=== PATIENT | male | born 1985 | race Two or more races ===

== ENCOUNTER 2019-11-14 11:49 | Emergency (ER) | payer MEDICAID, OTHER ==
[~2019-11-14] VITALS: Ht 188 cm; Wt 88.5 kg
[2019-11-14] MEDS ORDERED: ASPirin 81 mg TAB PO ONE (12:30)
[2019-11-14 13:10] LABS: Alcohol, Urine < 3.0 mg/dL (0-5); Amphetamine Screen, Urine NEGATIVE (NEGATIVE); Barbiturate Scree,Urine NEGATIVE (NEGATIVE); Benzodiazephine Screen, Urine NEGATIVE (NEGATIVE); Cannabinoid Screen, Urine POSITIVE (NEGATIVE); Cocaine Screen, Urine NEGATIVE (NEGATIVE); Opiate Scree,Urine NEGATIVE (NEGATIVE); Phencyclidine Screen, Urine NEGATIVE (NEGATIVE)
[2019-11-14 13:17] LABS: Basophils # (auto) 0 10 ^3/uL (0-0.2); Basophils % (auto) 0.9 % (0.0-2.0); Eosinophils # (auto) 0 10 ^3/uL (0-0.8); Hematocrit 47.2 % (41.0-53.0); Hemoglobin 16.5 g/dL (13.5-17.5); Lymphocytes # (auto) 1.5 10 ^3/uL (0.4-5.4); Lymphocytes % (auto) 32.2 % (10.0-50.0); Mean Corpuscular Hemoglobin 31.9 pg (28.0-32.0); Mean Corpuscular Hgb Conc. 34.8 g/dL (32.0-36.0); Mean Corpuscular Volume 91.6 fL (80.0-100.0); Monocytes # (auto) 0.5 10 ^3/uL (0-1.3); Monocytes % (auto) 10.8 % (0.0-12.0); Neutrophils # (auto) 2.6 10 ^3/uL (1.6-8.6); Neutrophils % (auto) 55.1 % (37.0-80.0); Platelet Count (auto) 161 10^3/uL (140-450); Red Blood Cells 5.16 10^6/uL (4.5-5.90); Red Cell Distribution Width 12.1 % (11.8-14.3); White Blood Cell 4.8 10^3/uL (4.4-10.8)
[2019-11-14 13:30] LABS: Albumin 4.1 g/dL (3.4-5.0); Anion Gap 2 (5-15); Blood Urea Nitrogen 10 mg/dL (7-18); Calcium 8.7 mg/dL (8.5-10.1); Carbon Dioxide 27 mmol/L (21-32); Chloride 109 mmol/L (98-107); Glucose 90 mg/dL (74-106); Potassium 4.2 mmol/L (3.5-5.1); Sodium 138 mmol/L (136-145)
[2019-11-14 13:37] LABS: Alanine Aminotransferase 36 U/L (16-61); Alkaline Phosphatase 93 U/L (45-117); Aspartate Aminotransferase 28 U/L (15-37); BUN/Creatinine Ratio 10.5; Bilirubin, Total 0.6 mg/dL (0.2-1.0); GFR African American 119 mL/min; GFR Non-African American 98 mL/min; Total Protein 7.6 g/dL (6.4-8.2)
[2019-11-14 16:35] VITALS: BP 119/65
== END 2019-11-14 16:38 | disposition home or self-care (01) ==
LOC: ER 11:49
DX: R07.89 Other chest pain (principal); R05 Cough; E78.5 Hyperlipidemia, unspecified
CPT/HCPCS: 36415; 71046; 80053; 80307; 84484; 85025; 85379; 93005